=== PATIENT | male | born 1985 | race Caucasian/White ===

== ENCOUNTER 2023-05-23 11:50 | Emergency (ER) | payer OTHER, SELFPAY ==
--- NOTE | ~2023-05-23 | XR_ITS ---
EXAMINATION: XR wrist RT min 3V DATE: 05/23/2023 12:08 INDICATION: Nail in wrist. TECHNIQUE: 4 views of right wrist were obtained. COMPARISON: None. FINDINGS: Bone alignment is normal. No fracture. 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 There is a nail in the soft tissues dorsal to the carpus. IMPRESSION: 1. Nail in the soft tissues dorsal to the carpus. Reviewed, dictated and finalized at location A.
[2023-05-23 12:10] VITALS: BP 138/59; PULSE 77; RESP 18; TEMP 36.6; O2SAT 99
[2023-05-23] MEDS: LIDO 1%/EPINEPHRINE 1:100,000 20 ML VIAL 10 ML INFILTRATE (13:23)
--- NOTE | 2023-05-23 13:24 | ED.UPPEXIN ---
HPI - Extremity Injury (Upper) General Chief Complaint: Extremity Injury, Upper Stated Complaint: nail in wrist Time Seen by Provider: 05/23/23 12:27 Source: patient Mode of arrival: ambulatory Limitations: no limitations History of Present Illness HPI narrative: This is a 38-year-old male that presents to the emergency department after an injury to the right hand with a nail gun. He accidentally shot himself in the right hand. Has nail lodged in his wrist. He is up-to-date on tetanus. Denies decreased range of motion or numbness. Related Data Allergies Allergy/AdvReac Type Severity Reaction Status Date / Time No Known Allergies Allergy Verified 05/23/23 12:21 [facility] [place] Past Medical History Medical History (Updated 05/23/23 @ 13:38 by Hellen Woody PA-C) No active medical problems Social History Social History (Updated 05/23/23 @ 13:38 by Hellen Woody PA-C) Substance use: never Exam Narrative: GENERAL: Well-appearing, well-nourished, and in no acute distress. HEAD: Normocephalic, atraumatic. EYES: EOMI. EXTREMITIES: Normal range of motion. No edema. Normal radial pulse. Normal sensation. Large nail noted in the soft tissue of the dorsal surface of the wrist SKIN: Warm, dry, no rash. NEURO: No focal deficits. Alert and oriented x3. PSYCH: Normal mood and affect Course Course Emergency Course: Patient was educated on wound care Vital Signs Vital signs: Vital Signs Temperature 97.9 F 05/23/23 12:10 Pulse Rate 77 05/23/23 12:10 Respiratory Rate 18 05/23/23 12:10 Blood Pressure 138/59 L 05/23/23 12:10 Pulse Oximetry 99 05/23/23 12:10 Temperature 97.9 F 05/23/23 12:10 Pulse Rate 77 05/23/23 12:10 Respiratory Rate 18 05/23/23 12:10 Blood Pressure 138/59 L 05/23/23 12:10 Pulse Oximetry 99 05/23/23 12:10 Procedures Foreign Body Removal Foreign Body #1: Foreign Body Removal Date: 05/23/23 Foreign Body Removal Time: 13:35 Time Out Performed: yes Site: right Description of foreign body: other (nail) Sedation/Analgesia: none Technique: other (removal with pliers) Confirmed by:: direct visualization and radiograph Complications: none Post-procedure exam: awake, alert Neurovascular: normal distal pulse, normal capillary fill, distal light touch sensation intact, distal motor function normal and no signs of compartment syndrome MDM - Extremity Injury (Upper) MDM Narrative Medical decision making narrative: Patient presents emergency department for nail gun injury sustained just prior to arrival. He is neurovascularly intact. Nail was easily removed. Noted to be in the soft tissues on wrist x-ray. No osseous abnormalities. Wound was irrigated. He is up to date on tetanus. Will be started on prophylactic antibiotic. He is to follow up with his PCP. He was given warnings to return to the ER Differential Diagnosis Differential diagnosis: Likely other (foreign body, laceration, contusion, abrasion) Imaging Data Radiologist's impression: ITS Impressions Wrist X-Ray 05/23/23 12:10 IMPRESSION: 1. Nail in the soft tissues dorsal to the carpus. Critical Care Time Critical Care Time Critical Care Time: No Discharge Plan Discharge Clinical Impression: Injury by nail gun Qualifiers: Encounter type: initial encounter Qualified Code(s): W29.4XXA - Contact with nail gun, initial encounter Patient Disposition: Home, Self-Care Condition: Stable Instructions: Antibiotic Form, Soft Tissue Foreign Body (ED) Additional Instructions: Return to the emergency department if you experience fever, redness or swelling of your wound, abnormal drainage from your wound, or any other symptoms that are concerning to you. Take oral antibiotic as prescribed. Apply antibiotic ointment daily. Do not soak the wound. Clean with mild soap and water daily Follow-up with your primary care do
[2023-05-23] MEDS: ceFAZolin SODIUM 1 GM VIAL IM (13:36)
[2023-05-23] MEDS: WATER, STERILE FOR INJECTION 10 ML VIAL XX (13:36)
[2023-05-23 13:39] VITALS: BP 125/62; PULSE 71; RESP 18; O2SAT 100
== END 2023-05-23 13:40 | disposition home or self-care (01) ==
PROVIDERS: Emergency Provider Physician Assistant
DX: S61.541A Puncture wound with foreign body of right wrist, initial encounter (principal); W29.4XXA Contact with nail gun, initial encounter
CPT/HCPCS: 73110; 96372; 99283; J0690